=== PATIENT | female | born 1940 | race Caucasian/White ===

== ENCOUNTER 2016-04-28 12:00 | Inpatient (IN) | payer MEDICAID ==
[~2016-04-28] VITALS: Ht 165.1 cm; Wt 47.6 kg
[2016-04-28 12:45] LABS: BASOPHILS # (AUTO) 0.1 /CMM (0.0-0.2); BASOPHILS % (AUTO) 0.9 % (0.0-2.0); DIFF TOTAL % 100 %; EOSINOPHILS # (AUTO) 0.1 /CMM (0.0-0.7); HEMATOCRIT 42 % (33-45); LYMPHOCYTES # (AUTO) 1.9 /CMM (0.8-4.8); MEAN CORPUSCULAR HEMOGLOBIN 28 PG (26.0-33.0); MEAN CORPUSCULAR HGB CONC 33 g/dl (31.0-36.0); MEAN CORPUSCULAR VOLUME 85 fL (82-100); MONOCYTES # (AUTO) 0.5 /CMM (0.1-1.30); NEUTROPHILS % (AUTO) 55.1 % (43.0-81.0); PLATELET COUNT (AUTO) 303 /CMM (150-450); RED BLOOD CELL COUNT(AUTO) 4.96 MIL/uL (4.0-5.2); WHITE BLOOD COUNT (AUTO) 5.6 K/uL (4.3-11.0)
[2016-04-28 12:55] LABS: ALANINE AMINOTRANSFERASE 19 U/L (12-78); ALBUMIN 4.1 g/dL (3.4-5.0); ANION GAP 11 (5-14); ASPARTATE AMINOTRANSFERASE 33 U/L (15-37); BILIRUBIN,DIRECT 0.2 mg/dL (0.0-0.2); BILIRUBIN,TOTAL 0.7 mg/dL (0.2-1.0); CALCIUM, SERUM 9.4 mg/dL (8.5-10.1); CARBON DIOXIDE 31 mmol/L (21-32); CHLORIDE 108 mmol/L (98-107); CREATININE 0.7 mg/dL (0.6-1.3); GLUCOSE 102 mg/dL (74-106); INDIRECT BILIRUBIN 0.5 mg/dL (0.0-1.1); POTASSIUM 3.4 mmol/L (3.5-5.1); SODIUM SERUM 146 mmol/L (136-145); UREA NITROGEN, BLOOD 34 mg/dL (7-18)
[2016-04-28 13:22] LABS: THYROID STIMULATING HORMONE 1.792 uIU/mL (0.358-3.74)
[2016-04-28] MEDS ORDERED: ALPR0.255 PO (13:41)
[2016-04-28 14:29] LABS: KETONES,URINE TRACE (NEGATIVE); LEUKOCYTE ESTERASE ,URINE NEGATIVE (NEGATIVE)
[2016-04-28 14:41] LABS: ADD UA MICROSCOPIC YES
[2016-04-28 14:43] LABS: ADD URINE CULTURE NO; RBC,URINE 0-2 /HPF (0-2); WBC,URINE 0-2 /HPF (0-3)
[2016-04-28 16:00] VITALS: BP 137/63
[2016-04-28] MEDS ORDERED: ACETAMINOPHEN 325 MG TABLET PO PRN (16:00)
[2016-04-28] MEDS ORDERED: Z GUARD REMEDY 2 OZ OINT TP PRN (16:00)
[2016-04-28] MEDS ORDERED: MAG HYDROX/AL HYDROX/SIMETH 30 ML UDC PO PRN (16:00)
[2016-04-28] MEDS ORDERED: POTASSIUM CHLORIDE 20 MEQ TAB.PRT.SR PO ONE (16:00)
[2016-04-28] MEDS ORDERED: ONDANSETRON HCL/PF 4 MG/2 ML VIAL IVP PRN (16:00)
[2016-04-28] MEDS ORDERED: MAGNESIUM HYDROXIDE 30 ML UDC PO PRN (16:00)
[2016-04-28] MEDS: HYDROCODONE/APAP 5/325MG 1 EACH TABLET PO PRN ×2 (16:10→20:51)
[2016-04-28] MEDS: ALPRAZOLAM 0.25 MG TABLET PO PRN (16:11)
[2016-04-28] MEDS ORDERED: IV SET PRIMARY PUMP SET 1 EA INFUS.SET MC ONE (16:11)
[2016-04-28] MEDS: ENOXAPARIN SODIUM 40 MG/0.4 ML DISP.SYRIN SQ SCH (16:17)
[2016-04-28] MEDS: IV D5/0.45 NACL 1,000 ML IV PRN (16:18)
[2016-04-28 20:00] VITALS: BP 117/55
[2016-04-28] MEDS: ZOLPIDEM TARTRATE 5 MG TABLET PO PRN (20:51)
[2016-04-29 06:36] LABS: BASOPHILS # (AUTO) 0.1 /CMM (0.0-0.2); BASOPHILS % (AUTO) 0.8 % (0.0-2.0); DIFF TOTAL % 100 %; EOSINOPHILS # (AUTO) 0.1 /CMM (0.0-0.7); EOSINOPHILS % (AUTO) 1.9 % (0.0-6.0); HEMATOCRIT 40 % (33-45); HEMOGLOBIN 13.1 g/dL (11.5-14.8); LYMPHOCYTES # (AUTO) 2.6 /CMM (0.8-4.8); LYMPHOCYTES % (AUTO) 37.5 % (20.0-44.0); MEAN CORPUSCULAR HEMOGLOBIN 28 PG (26.0-33.0); MEAN CORPUSCULAR HGB CONC 33 g/dl (31.0-36.0); MEAN CORPUSCULAR VOLUME 86 fL (82-100); MONOCYTES # (AUTO) 0.7 /CMM (0.1-1.30); MONOCYTES % (AUTO) 9.9 % (2.0-12.0); NEUTROPHILS # (AUTO) 3.5 /CMM (1.8-8.9); NEUTROPHILS % (AUTO) 49.9 % (43.0-81.0); PLATELET COUNT (AUTO) 273 /CMM (150-450); RED BLOOD CELL COUNT(AUTO) 4.65 MIL/uL (4.0-5.2); WHITE BLOOD COUNT (AUTO) 6.9 K/uL (4.3-11.0)
[2016-04-29 07:02] LABS: CALCIUM, SERUM 9.6 mg/dL (8.5-10.1); CREATININE 0.7 mg/dL (0.6-1.3); PHOSPHORUS 3.2 mg/dL (2.5-4.9); POTASSIUM 3.8 mmol/L (3.5-5.1)
[2016-04-29 07:06] LABS: THYROID STIMULATING HORMONE 2.038 uIU/mL (0.358-3.74)
[2016-04-29 08:00] VITALS: BP 124/91
[2016-04-29] MEDS: PANTOPRAZOLE 40 MG TABLET.DR PO SCH (08:13)
[2016-04-29] MEDS: IV D5/0.45 NACL 1,000 ML IV PRN (10:17)
[2016-04-29] MEDS ORDERED: SECONDARY IV SET 1 EA INFUS.SET MC ONE (10:28)
[2016-04-29] MEDS: ALPRAZOLAM 0.25 MG TABLET PO PRN ×2 (10:31→23:21)
[2016-04-29] MEDS: Magnesium 1GM/D5W 100ML PREMIX 100 ML IV SCH ×2 (10:31→11:38)
[2016-04-29] MEDS: HALOPERIDOL 1 MG TABLET PO PRN (13:53)
[2016-04-29 16:00] VITALS: BP 134/67
[2016-04-29 20:00] VITALS: BP 151/85
[2016-04-29] MEDS: ZOLPIDEM TARTRATE 5 MG TABLET PO PRN (21:02)
[2016-04-29] MEDS: QUETIAPINE FUMARATE 25 MG TABLET PO SCH (21:02)
[2016-04-29] MEDS: ENOXAPARIN SODIUM 40 MG/0.4 ML DISP.SYRIN SQ SCH (21:12)
[2016-04-29] MEDS: HYDROCODONE/APAP 5/325MG 1 EACH TABLET PO PRN (23:21)
[2016-04-30 06:26] LABS: CALCIUM, SERUM 9.6 mg/dL (8.5-10.1); CREATININE 0.7 mg/dL (0.6-1.3); POTASSIUM 3.7 mmol/L (3.5-5.1)
[2016-04-30 08:00] VITALS: BP 129/70
[2016-04-30] MEDS: PANTOPRAZOLE 40 MG TABLET.DR PO SCH (08:09)
[2016-04-30 16:00] VITALS: BP_SYST 129; BP_SYST 141; BP_DIAS 70; BP_DIAS 87
[2016-04-30 17:00] VITALS: BP 141/87
[2016-04-30 19:00] VITALS: BP 127/69
[2016-04-30 20:00] VITALS: BP 127/69
[2016-04-30] MEDS: QUETIAPINE FUMARATE 25 MG TABLET PO SCH (21:12)
[2016-04-30] MEDS: ENOXAPARIN SODIUM 40 MG/0.4 ML DISP.SYRIN SQ SCH (21:15)
[2016-05-01 07:12] LABS: CALCIUM, SERUM 9.2 mg/dL (8.5-10.1); CREATININE 0.8 mg/dL (0.6-1.3); POTASSIUM 3.9 mmol/L (3.5-5.1)
[2016-05-01 08:00] VITALS: BP 106/50
[2016-05-01] MEDS: PANTOPRAZOLE 40 MG TABLET.DR PO SCH (09:02)
[2016-05-01 16:00] VITALS: BP 150/98
[2016-05-01 20:00] VITALS: BP 132/56
[2016-05-01] MEDS: QUETIAPINE FUMARATE 25 MG TABLET PO SCH (21:34)
[2016-05-01] MEDS: ENOXAPARIN SODIUM 40 MG/0.4 ML DISP.SYRIN SQ SCH (21:36)
[2016-05-02] MEDS: ZOLPIDEM TARTRATE 5 MG TABLET PO PRN (00:41)
[2016-05-02 07:14] LABS: CALCIUM, SERUM 9.4 mg/dL (8.5-10.1); CREATININE 0.7 mg/dL (0.6-1.3); POTASSIUM 3.7 mmol/L (3.5-5.1)
[2016-05-02] MEDS: PANTOPRAZOLE 40 MG TABLET.DR PO SCH (07:52)
[2016-05-02 08:00] VITALS: BP 122/60
[2016-05-02] MEDS ORDERED: QUET25TA PO (08:38)
[2016-05-02] MEDS: ALPRAZOLAM 0.25 MG TABLET PO PRN ×2 (09:07→16:59)
[2016-05-02] MEDS: HALOPERIDOL 1 MG TABLET PO PRN (16:45)
== END 2016-05-02 17:36 | disposition home or self-care (01) | DRG 422 ==
LOC: ER 12:01 → MEDSG2 15:38
PROVIDERS: ATTEND Family Medicine
DX: E87.0 Hyperosmolality and hypernatremia (principal); E86.0 Dehydration; G30.9 Alzheimer's disease, unspecified; F02.80 Dementia in other diseases classified elsewhere, unspecified severity, without behavioral disturbance, psychotic disturbance, mood disturbance, and anxiety; E83.42 Hypomagnesemia; F20.9 Schizophrenia, unspecified; F41.9 Anxiety disorder, unspecified; Z86.73 Personal history of transient ischemic attack (TIA), and cerebral infarction without residual deficits
CPT/HCPCS: 36415; 70450-TC; 71010-TC; 80048-TC; 80061-TC; 80076-TC; 81000-TC; 83735-TC; 84100-TC; 84443-TC; 85025-TC; 87081-TC; 97001-TC; A4606; A6402; G0480; J1650; J3475; J3490; Z7610